=== PATIENT | female | born 1990 ===

== ENCOUNTER 2020-10-29 06:52 | Inpatient (IN) | payer OTHER ==
[2020-10-29] MEDS ORDERED: OXYTOCIN DRIP 30,000 MILLIUNITS/500 ML BAG IV ONE (07:35)
[2020-10-29] MEDS ORDERED: LACTATED RINGERS 1,000 ML ONE (07:35)
[2020-10-29] MEDS ORDERED: AMPICILLIN/NS 2 GM/100 ML 2 GM/100 ML BAG IV ONE (07:35)
[2020-10-29] MEDS ORDERED: LACTATED RINGERS 1,000 ML IV SCH (08:00)
[2020-10-29] MEDS ORDERED: fentaNYL 100 MCG/2 ML INJ IV SCH (08:00)
[2020-10-29] MEDS ORDERED: OXYTOCIN DRIP 30 UNITS/500 ML BAG IV SCH (08:00)
[2020-10-29] MEDS ORDERED: ACETAMINOPHEN 325 MG TAB PO PRN (08:40)
--- NOTE | 2020-10-29 08:40 | Procedure Note ---
OB Delivery Note - Delivery Date of Delivery: 10/29/20 Seasoning Sprayer: MICHELLE MIRAMONTES Estimated blood loss: other (400 ml) - Vaginal Delivery presentation: vertex Delivery position: OA Intrapartum events: precipitous labor- <3hr Delivery induction: none Delivery augmentation: rupture of membranes (Clear fluid) Delivery monitor: external FHT, external uterine Route of delivery: Delivery placenta: spontaneous Delivery cord: 3 umbilical vessels Episiotomy: none Delivery laceration: none Anesthesia: none Delivery comments: Was called to room by RN for delivery assistance. of viable over intact perineum. Infant to mother's chest for skin to skin. Cord cut and clamped by FOC after cessation of pulse. Spontaneous delivery of placenta, intact, complete, 3 vessels noted. Brisk bleeding noted after delivery. Stopped with Methergine, and Pitocin. Fundus firm and minimal bleeding noted after interventions. Perineum and vaginal inspected, no lacerations noted. Apgars 8,9. Weight 9-0. Sponges counted and correct X 2. and mother left in stable condition in care of RN.
[2020-10-29] MEDS ORDERED: WITCH HAZEL/ GLYCERIN PAD TP PRN (09:00)
[2020-10-29] MEDS ORDERED: IBUPROFEN 600 MG TAB PO SCH (09:00)
[2020-10-29] MEDS ORDERED: diphenhydrAMINE 25 MG CAP PO PRN (09:00)
[2020-10-29] MEDS ORDERED: LANOLIN/ZINC/DIMETHICONE (LANSINOH) 7 GM TP PRN ×2 (09:30)
[2020-10-29] MEDS ORDERED: BENZOCAINE/MENTHOL 20/0.5% TOP SPRAY 56 GM TP PRN (09:30)
[2020-10-29] MEDS ORDERED: ONDANSETRON 4 MG/2 ML INJ IV PRN (09:30)
[2020-10-29] MEDS ORDERED: PROMETHAZINE 25 MG TAB PO PRN (09:30)
[2020-10-29] MEDS ORDERED: PROMETHAZINE 25 MG RECT SUPP PR PRN (09:30)
[2020-10-29] MEDS ORDERED: METHYLERGONOVINE MALEATE 0.2 MG/ML VIAL IM SCH (10:00)
[2020-10-29] MEDS ORDERED: ACETAMINOPHEN 500 MG TAB PO PRN (10:00)
[2020-10-29 10:06] LABS: Basophils % (Auto) 0.1 % (0.0-1.8); Eosinophils # (Auto) 0.3 K/mm3 (0.0-0.4); Eosinophils % (Auto) 2.5 % (0.0-4.3); Lymphocytes # (Auto) 1.3 K/mm3 (1.2-5.4); Lymphocytes % (Auto) 12.5 % (13.4-35.0); Mean Corpuscular HGB Conc 33 % (30-34); Mean Corpuscular Volume 86 fl (79-97); Monocytes # (Auto) 0.7 K/mm3 (0.0-0.8); Monocytes % (Auto) 6.6 % (0.0-7.3); Platelet Count 221 K/mm3 (140-440); Red Blood Count 4.21 M/mm3 (3.65-5.03); Red Cell Distribution Width 15.8 % (13.2-15.2)
--- NOTE | 2020-10-29 10:57 | History and Physical Report ---
History of Present Illness Date of examination: 10/29/20 Date of admission: 10/29/20 08:32 Chief complaint: labor pains History of present illness: records not available. History is per patient report. Pt states she initiated care at "about 4 months" gestation at [facility] . course complicated by anemia (PO iron supplementation). Past History Past Medical History: no pertinent history Past Surgical History: no surgical history Family/Genetic History: none Social history: no significant social history - Obstetrical History Expected Date of Delivery: 11/02/20 Actual Gestation: 39 Week(s) 3 Day(s) : 5 Para: 4 Hx # Term Pregnancies: 2 Number of Pregnancies: 2 Number of Living Children: 4 #1 Gender: Male year: , Method of Delivery: Vaginal Complications: none #2 Infant Gender: Male year: ,008 Method of Delivery: Vaginal Complications: none #3 Infant Gender: Male year: ,012 Method of Delivery: Vaginal Complications: none #4 Gender: Male year: ,019 Method of Delivery: Vaginal Complications: none Medications and Allergies Allergies Allergy/AdvReac Type Severity Reaction Status Date / Time amoxicillin Allergy Rash Verified 10/29/20 07:48 Active Meds: Active Medications Acetaminophen (Acetaminophen 500 Mg Tab) 1,000 mg PO Q6H PRN PRN Reason: Pain, Mild (1-3)/Fever>100.5 Benzocaine/Menthol (Benzocaine/Menthol 20/0.5% [place] 56 Gm) 1 spray TP PRN PRN PRN Reason: Episiotomy Pain Bisacodyl (Bisacodyl 10 Mg Rect Supp) 10 mg TN BID PRN PRN Reason: Constipation Diphenhydramine HCl (Diphenhydramine 25 Mg Cap) 25 mg PO Q6H PRN PRN Reason: Itching Diphtheria/Tetanus/Acell Pertussis (Diphtheria,Pertussis(Acell),Tetanus Vaccine/Pf 0.5 Ml Vial) 0.5 ml IM .ONCE ONE Stop: 10/30/20 08:01 Lactated Ringer's (Lactated Ringers) 1,000 mls @ 125 mls/hr IV DIRECT MALIK Oxytocin/Sodium Chloride (Pitocin/Ns 30 Unit/500ml) 30 units in 500 mls @ 40 mls/hr IV TITR MALIK; Protocol Last Admin: 10/29/20 09:56 Dose: 40 mls/hr, 40 mls/hr Documented by: Ibuprofen (Ibuprofen 800 Mg Tab) 800 mg PO Q6H MALIK Magnesium Hydroxide (Magnesium Hydroxide (Mom) Oral Liqd Udc) 30 ml PO HS PRN PRN Reason: Constipation Methylergonovine Maleate (Methylergonovine Maleate 0.2 Mg/Ml Vial) 0.2 mg IM ONCE MALIK Stop: 10/29/20 14:00 Multi-Ingredient Ointment (Lanolin/Zinc/Dimethicone (Lansinoh) 7 Gm) 1 applic TP PRN PRN PRN Reason: Sore Nipples Multi-Ingredient Ointment (Lanolin/Zinc/Dimethicone (Lansinoh) 7 Gm) 1 applic TP PRN PRN PRN Reason: dryness/cracking Ondansetron HCl (Ondansetron 4 Mg/2 Ml Inj) 4 mg IV Q8H PRN PRN Reason: Nausea And Vomiting Promethazine HCl (Promethazine 25 Mg Rect Supp) 25 mg TN Q6H PRN PRN Reason: Nausea And Vomiting Promethazine HCl (Promethazine 25 Mg Tab) 25 mg PO Q6H PRN PRN Reason: Nausea And Vomiting Sodium Chloride (Sodium Chloride 0.9% 10 Ml Flush Syringe) 10 ml IV PRN PRN PRN Reason: flush Witch Nilam/Glycerin (Witch Nilam/ Glycerin Pad) 1 each TP PRN PRN PRN Reason: Hemorrhoid/cleansing/soothing Review of Systems All systems: negative - Vital Signs Vital signs: Vital Signs Pulse Pulse Ox 95 H 99 10/29/20 07:24 10/29/20 07:24 Temp Pulse Resp BP Pulse Ox 75 117/56 91 10/29/20 09:10 10/29/20 08:59 10/29/20 09:10 - Physical Exam Breasts: Positive: normal Abdomen: Positive: normal appearance, soft Genitourinary (Female): Positive: normal external genitalia, normal perenium Vagina: Positive: normal moisture Uterus: Positive: enlarged Anus/Rectum: Positive: normal perianal skin Extremities: Positive: normal - Obstetrical FHR: auscultation normal Cervical Dilatation: 9 Cervical Effacement Percentage: 100 station: +2 Uterine Contraction Pattern: Regular Uterine Contraction Intensity: Moderate Results Result Diagrams: 10/29/20 09:03 Abnormal lab results 10/29/20 Range/Units 09:03 RDW 15.8 H (13.2-15.2) % Lymph % (Auto) 12.5 L (13.4-35.0) % Seg Neutrophils % 78.3 H (40.0-70.0) % Seg Neutrophils # 7.9 H (1.8-7.7) K/mm3 All other labs normal. Assessment and Plan A: IUP at 39 3/7 weeks Active Labor GBS unknown P: Admit to L&D per routine orders Anticipate vaginal delivery
[2020-10-29] MEDS: IBUPROFEN 800 MG TAB PO SCH ×2 (12:58→18:04)
[2020-10-29 13:52] LABS: Hepatitis C Virus Antibody Non-Reactive (NonReactive)
[2020-10-29 14:28] LABS: Bilirubin,Urine NEG (Negative); Blood,Urine LG (Negative); Color,Urine Yellow (Yellow); Mucus,Urine FEW /HPF; Protein,Urine <15 mg/dL mg/dL (Negative); RBC,Urine > 182.0 /HPF (0.0-6.0); Urobilinogen,Urine < 2.0 mg/dL (<2.0)
[2020-10-29 15:42] LABS: Amphetamine Screen,Urine Negative; Benzodiazepines Screen,Urine Negative; Cannabinoid Screen,Urine Negative; Cocaine Screen,Urine Negative; Methadone Screen,Urine Negative; Opiate Screen,Urine Negative
[2020-10-29 20:49] LABS: Hematocrit 31.8 % (30.3-42.9); Hemoglobin 10.4 gm/dl (10.1-14.3)
[2020-10-29] MEDS ORDERED: MAGNESIUM HYDROXIDE (MOM) ORAL LIQD UDC PO PRN (22:00)
[2020-10-30] MEDS: IBUPROFEN 800 MG TAB PO SCH ×5 (00:10→23:52)
[2020-10-30] MEDS ORDERED: DIPHtheria,PERTUSSIS(ACELL),TETANUS VACCINE/PF 0.5 ML VIAL IM ONE (08:00)
--- NOTE | 2020-10-30 15:06 | Progress Note ---
Assessment and Plan PPD # 1 A: S/P p: Continue routine pp care Encourage ambulation and hydration D/C home tomm if stable Subjective - Subjective Date of service: 10/30/20 Principal diagnosis: s/p Patient reports: appetite normal, voiding normally, pain well controlled, ambulating normally : doing well, bottle feeding Objective - Vital Signs Latest vital signs: Vital Signs Temp Pulse Resp BP BP Pulse Ox 10/30/20 11:04 89 96/51 10/30/20 07:35 97.9 F 68 18 98/47 96 10/30/20 00:18 98.1 F 81 18 102/49 96 Intake and Output 10/30/20 10/30/20 10/30/20 06:59 14:59 22:59 Intake Total 240 Balance 240 Intake: Oral 240 Other: Total, Intake Amount 120 # Voids Void 1 - Exam Breasts: Present: normal Abdomen: Present: normal appearance, soft, normal bowel sounds Vulva: both: normal Uterus: Present: normal, firm, fundal height below umbilicus Extremities: Present: normal
--- NOTE | 2020-10-30 15:46 | Discharge Summary ---
Providers - Providers Date of Admission: 10/29/20 08:32 Date of discharge: 10/31/20 Attending physician: JEREMI BURRIS JR, MD Primary care physician: JEREMI BURRIS JR, MD Hospitalization Reason for admission: active labor Delivery: Episiotomy: none Laceration: none Other procedures: none complications: none Discharge diagnosis: IUP at term delivered Hospital course: Pt was admitted to [facility] L&D in active labor. She had a w/o pp complications. See h&p, delivery summary, and PP notes. Condition at discharge: Stable Disposition: DC-01 TO HOME OR SELFCARE Plan - Discharge Medications Prescriptions: Ibuprofen [Motrin 800 MG tab] 800 mg PO Q6H #30 tablet - Provider Discharge Summary Activity: routine, no sex for 6 weeks, no heavy lifting 4 weeks, no strenuous exercise Diet: routine Instructions: routine Additional instructions: [] Smoking cessation referral if applicable(refer to patient education folder for contact #) [] Refer to [facility] Booklet Call your doctor immediately for: * Fever > 100.5 * Heavy vaginal bleeding ( >1 pad per hour) * Severe persistent headache * Shortness of breath * Reddened, hot, painful area to leg or breast * Drainage or odor from incision. * Keep incision clean and dry at all times and follow doctor's instructions regarding bathing/showering - Follow up plan Follow up: JREEMI BURRIS JR, MD [Primary Care Provider] - 6 Weeks
[2020-10-31] MEDS: IBUPROFEN 800 MG TAB PO SCH (05:13)
[2020-10-31 11:37] VITALS: BP 110/51
== END 2020-10-31 12:00 | disposition home or self-care (01) | DRG 807 ==
LOC: TRG 06:52 → APU 06:53 → LD 07:56 → TRG 08:25 → LD 08:32 → OB 12:32
PROVIDERS: ADMIT Obstetrics & Gynecology; ATTEND Obstetrics & Gynecology
PROC: 10E0XZZ Delivery of Products of Conception, External Approach (ICD-10-PCS; principal; 2020-10-29)
DX: O62.3 Precipitate labor (principal); Z37.0 Single live birth; Z3A.39 39 weeks gestation of pregnancy; Z88.1 Allergy status to other antibiotic agents; Z20.822 Contact with and (suspected) exposure to COVID-19
CPT/HCPCS: 36415; 80307; 81001; 85014; 85018; 85025; 86592; 86706; 86762; 86803; 86850; 86900; 86901; 87806; 96360; 96361; G0378; J2210; J2590; J3010; J7120; U0003